=== PATIENT | male | born 1945 | race Caucasian/White ===

== ENCOUNTER 2019-12-26 13:48 | Emergency (ER) | payer MEDICARE, BC ==
[2019-12-26 13:59] VITALS: BP 119/82; PULSE 89
[2019-12-26] MEDS ORDERED: Ondansetron 4 MG/2 ML SDV IVPUSH ONE (14:15)
[2019-12-26] MEDS ORDERED: Sodium Chloride 0.9% 1,000 ML IV ONE (14:15)
[2019-12-26] MEDS ORDERED: HYDROmorphone 1 MG/ML Syringe IVPUSH ONE ×2 (14:15→15:40)
--- NOTE | 2019-12-26 14:20 | EDM.PDOC ---
ED HPI GENERAL MEDICAL PROBLEM - General Chief Complaint: Abdominal Pain Stated Complaint: STOMACH VERY PAINFUL Time Seen by Provider: 12/26/19 14:14 Source of Information: Reports: Patient History Limitations: Reports: No Limitations - History of Present Illness INITIAL COMMENTS - FREE TEXT/NARRATIVE: Patient is a 74-year-old gentleman who presents to the emergency department via private vehicle with a complaint of abdominal pain. states abdominal pain is described as pressure and pulling, began at 1600 yesterday, and has been persistent and gradually worsening. Patient states she's had 3 episodes of vomiting and no bowel movements. Patient underwent prostatectomy at [facility] in [place] on December 22. Patient states that the procedure was uneventful. He has however not had a bowel movement since. He currently has an indwelling Sharp catheter. Patient denies chest pain, shortness of breath, fever, blood from rectum, history of covid 19, or dislodging of urinary catheter. Onset: Sudden Onset Date: 12/25/19 Onset Time: 16:00 Duration: Day(s): Location: Reports: Abdomen Quality: Reports: Pressure Severity: Moderate Improves with: Reports: None Worsens with: Reports: None Associated Symptoms: Reports: Nausea/Vomiting. Denies: Chest Pain, Cough, Diaphoresis, Fever/Chills, Headaches, Shortness of Breath Bilateral Upper Abdominal Pain Score (Numeric/FACES): 10 - Related Data Allergies Allergy/AdvReac Type Severity Reaction Status Date / Time Sulfa (Sulfonamide Allergy Dizziness Verified 12/26/19 13:52 Antibiotics) Home Meds: Home Meds Gabapentin [Neurontin] 300 mg PO TID 12/26/19 [History] Sildenafil [Revatio] 20 mg PO ASDIRECTED PRN 12/26/19 [History] lisinopriL [Lisinopril] 10 mg PO DAILY 12/26/19 [History] Past Medical History Cardiovascular History: Reports: Other (See Below) Other Cardiovascular History: cardiac ablation Respiratory History: Reports: Asthma Gastrointestinal History: Reports: Jaundice Other Gastrointestinal History: 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 Constitutional: Reports: No Symptoms HEENT: Reports: No Symptoms Respiratory: Reports: No Symptoms Cardiovascular: Reports: No Symptoms Endocrine: Reports: No Symptoms GI/Abdominal: Reports: Abdominal Pain, Nausea, Vomiting : Reports: No Symptoms Musculoskeletal: Reports: No Symptoms Skin: Reports: No Symptoms Neurological: Reports: No Symptoms Psychiatric: Reports: No Symptoms Hematologic/Lymphatic: Reports: No Symptoms Immunologic: Reports: No Symptoms ED EXAM, GI/ABD - Physical Exam Exam: See Below Exam Limited By: No Limitations General Appearance: Alert, WD/WN, Mild Distress Throat/Mouth: Normal Inspection, Normal Oropharynx, No Airway Compromise Respiratory/Chest: No Respiratory Distress, Lungs Clear, Normal Breath Sounds, No Accessory Muscle Use, Chest Non-Tender Cardiovascular: Regular Rate, Rhythm, No Murmur GI/Abdominal Exam: No Abnormal Bruit, Abnormal Bowel Sounds (Hypoactive in all 4 quadrants). No: Distended, Guarding, Rigid, Rebound (Male) Exam: No Hernia Back Exam: Normal Inspection. No: CVA Tenderness (L), CVA Tenderness (R) Extremities: Normal Inspection, No Pedal Edema Neurological: Alert, Oriented, Normal Cognition Psychiatric: Normal Affect, Normal Mood Skin Exam: Warm, Dry, Intact, Normal Color, No Rash Lymphatic: No Adenopathy Course - Vital Signs Last Recorded V/S: Last Vital Signs Temp 96.8 F L 12/26/19 13:52 Pulse 89 12/26/19 13:52 Resp 16 12/26/19 13:52 BP 119/82 12/26/19 13:52 Pulse Ox 94 L 12/26/19 13:52 - Orders/Labs/Meds Orders: Active Orders 24 hr Category Date Time Status Peripheral IV Care [RC] . DIRECTED Care 12/26/19 14:13 Active URINALYSIS W/MICROSCOPIC [UA W/MICROSCOPIC] [URIN] Stat Lab 12/26/19 14:00 Ordered Sodium Chloride 0.9% [Saline Flush] Med 12/26/19 14:13 Active 10 ml FLUSH Q8HR PRN Peripheral IV Insertion Adult [OM.PC] Routine Oth 05/23/20 14:13 Ordered Medication Orders Sodium Chloride (Saline Flush) 10 ml FLUSH Q8HR PRN PRN Reason: keep vein open Last Admin: 12/26/19 14:30 Dose: 10 ml Admin: 12/26/19 14:29 Dose: 10 ml Labs: Laboratory Tests 12/26/19 12/26/19 Range/Units 14:07 14:07 WBC 9.54 (5.00-10.00) 10^3/uL RBC 4.44 L (4.50-6.00) 10^6/uL Hgb 13.3 (13.0-17.0) g/dL Hct 38.1 L (40.0-52.0) % MCV 85.8 D (82.0-92.0) fL MCH 30.0 (27.0-31.0) pg MCHC 34.9 (32.0-36.0) g/dL RDW 12.6 (11.5-14.5) % Plt Count 289 (150-400) 10^3/uL MPV 10.5 H (7.4-10.4) fL Immature Gran % (Auto) 0.4 (0.0-5.0) % Neut % (Auto) 77.4 H (50.0-70.0) % Lymph % (Auto) 15.2 L (20.0-40.0) % [place] % (Auto) 6.4 (2.0-8.0) % Eos % (Auto) 0.4 L (1.0-3.0) % Baso % (Auto) 0.2 (0.0-1.0) % Neut # (Auto) 7.38 H (2.50-7.00) 10^3/uL Lymph # (Auto) 1.45 (1.00-4.00) 10^3/uL [place] # (Auto) 0.61 (0.10-0.80) 10^3/uL Eos # (Auto) 0.04 L (0.10-0.30) 10^3/uL Baso # (Auto) 0.02 (0.00-0.10) 10^3/uL Immature Gran # (Auto) 0.04 (0.00-0.50) 10^3/uL Sodium 138 (136-145) mmol/L Potassium 3.9 (3.3-5.3) mmol/L Chloride 97 L (98-115) mmol/L Carbon Dioxide 32.9 H (21.0-32.0) mmol/L Anion Gap 12.0 (5-15) mmol/L BUN 32 H (6-25) mg/dL Creatinine 0.95 (0.51-1.17) mg/dL Est Cr Clr Drug Dosing 74.86 mL/min Estimated GFR (MDRD) > 60 mL/min Glucose 127 H (75 - 99) mg/dL Calcium 9.5 (8.7-10.3) mg/dL Total Bilirubin 1.0 (0.2-1.0) mg/dL AST 37 (15-37) U/L ALT 32 (12-78) U/L Alkaline Phosphatase 77 (46-116) IU/L Total Protein 7.2 (6.4-8.2) g/dL Albumin 3.78 (3.00-4.80) g/dL Lipase 101 (73-393) U/L Meds: Medications Generic Name Dose Route Start Last Admin Trade Name Freq PRN Reason Stop Dose Admin Sodium Chloride 10 ml 12/26/19 14:13 12/26/19 14:30 Saline Flush FLUSH 10 ml Q8HR PRN Administration keep vein open Discontinued Medications Generic Name Dose Route Start Last Admin Trade Name Freq PRN Reason Stop Dose Admin Hydromorphone HCl 0.5 mg 12/26/19 14:15 12/26/19 14:24 Dilaudid IVPUSH 12/26/19 14:16 0.5 mg ONETIME ONE Administration Sodium Chloride 1,000 mls @ 999 mls/hr 12/26/19 14:15 12/26/19 14:52 Normal Saline IV 12/26/19 15:15 999 mls/hr .BOLUS ONE Administration Ondansetron HCl 4 mg 12/26/19 14:15 12/26/19 14:21 Zofran IVPUSH 12/26/19 14:16 4 mg ONETIME ONE Administration - Radiology Interpretation Free Text/Narrative:: CT abdomen and pelvis shows small bowel obstruction - Re-Assessments/Exams Free Text/Narrative Re-Assessment/Exam: 12/26/19 15:35 Patient afebrile, vital signs stable, pain controlled, nontoxic appearing. Discussed case with Dr.Zreik, Gen. surgery at [facility]. He will accept transfer of patient via [facility] ground ambulance. Departure - Departure Time of Disposition: 15:37 Disposition: DC/Tfer to Acute Hospital 02 Condition: Fair Clinical Impression: Small bowel obstruction - Discharge Information Referrals: Rico Gonzáles [employer] [Primary Care Provider] - Forms: ED Department Discharge Sepsis Event Note - Evaluation Sepsis Screening Result: No Definite Risk - Focused Exam Vital Signs: Vital Signs Temp Pulse Resp BP Pulse Ox 12/26/19 13:52 96.8 F L 89 16 119/82 94 L Date Exam was Performed: 12/26/19 Time Exam was Performed: 15:37 - My Orders Last 24 Hours: My Active Orders 12/26/19 14:00 URINALYSIS W/MICROSCOPIC [UA W/MICROSCOPIC] [URIN] Stat 12/26/19 14:13 Peripheral IV Care [RC] . DIRECTED Sodium Chloride 0.9% [Saline Flush] 10 ml FLUSH Q8HR PRN Peripheral IV Insertion Adult [OM.PC] Routine - Assessment/Plan Last 24 Hours: My Active Orders 12/26/19 14:00 URINALYSIS W/MICROSCOPIC [UA W/MICROSCOPIC] [URIN] Stat 12/26/19 14:13 Peripheral IV Care [RC] . DIRECTED Sodium Chloride 0.9% [Saline Flush] 10 ml FLUSH Q8HR PRN Peripheral IV Insertion Adult [OM.PC] Routine Assessment:: Small bowel obstruction Plan: Transfer to [facility]
[2019-12-26] MEDS: Sodium Chloride 0.9% 10 ML Syringe FLUSH PRN ×2 (14:29→14:30)
[2019-12-26 14:40] LABS: CHLORIDE,CL 97 mmol/L (98-115); SODIUM,NA 138 mmol/L (136-145)
--- NOTE | 2019-12-26 15:12 | CT ---
[id number] CT/CT Abdomen Pelvis WO IV EXAM: CT Abdomen Pelvis WO IV CLINICAL DATA: UPPER ABDOMINAL PAIN. COMPARISON STUDY: None. FINDINGS: A few scattered tree-in-bud nodularity is within the right midlung zone. There are postsurgical changes following recent prostatectomy. There are a few hyperdense collections in the region of the resection bed likely related to postsurgical seroma/hematoma. The largest of these measures up to 5 cm. There is a Sharp catheter in place. There is free air, small amount of free fluid. The liver, spleen, adrenal glands and kidneys are unremarkable. Cholelithiasis without evidence of acute cholecystitis. Fatty atrophy of the pancreas. Multiple fluid distended loops of small bowel. There is no distinct transition point identified. No pneumatosis. There is gas and stool within the colon. Small right rectus sheath hematoma measuring up to 0.8 cm. No hyperdensity to suggest active extravasation. No significant adenopathy. Extensive postsurgical changes of the visualized spine. IMPRESSION: 1. Postsurgical changes following recent prostatectomy as described above. Multiple fluid distended loops of small bowel without a distinct transition point. There is gas and stool within the colon. Findings are suggestive of ileus versus partial small bowel obstruction. Praful Alejo DO 12/26/19 [id number] Thank you for allowing us to participate in the care of your patient.
[2019-12-26] MEDS ORDERED: Sodium Chloride 0.9% 1,000 ML IV SCH (15:45)
== END 2019-12-26 15:35 ==
LOC: KA.ED 13:48
DX: K56.609 Unspecified intestinal obstruction, unspecified as to partial versus complete obstruction (principal); J45.909 Unspecified asthma, uncomplicated; M41.9 Scoliosis, unspecified; Z79.899 Other long term (current) drug therapy; Z88.2 Allergy status to sulfonamides
CPT/HCPCS: 36415; 74176; 80053; 83690; 85025; 96361; 96374; 96375; 99284; 99285-25; J1170; J2405; J7030

== ENCOUNTER 2021-12-02 18:31 | Emergency (ER) | payer MEDICARE, BC ==
[2021-12-02 19:08] LABS: ANION GAP 10.7 mmol/L (5-15); CHLORIDE,CL 98 mmol/L (98-107); SODIUM,NA 134 mmol/L (136-145)
[2021-12-02] MEDS: HYDROmorphone 1 MG/ML Syringe IM ONE (19:53)
[2021-12-02 20:07] LABS: CORONAVIRUS COVID-19 NAA NEGATIVE (NEGATIVE)
[2021-12-02 20:31] VITALS: BP 147/85; PULSE 69
== END 2021-12-02 20:50 | disposition home or self-care (01) ==
LOC: KA.ED 18:31
DX: M54.2 Cervicalgia (principal); Z88.2 Allergy status to sulfonamides; Z79.899 Other long term (current) drug therapy; Z20.822 Contact with and (suspected) exposure to COVID-19
CPT/HCPCS: 0240U; 36415; 71046; 80048; 85025; 87081; 87430; 96372; 99283-25; 99284; J1170

== ENCOUNTER 2022-09-11 07:04 | Day surgery (SDC) | payer MEDICARE, BC ==
[~2022-09-11 07:04] MED LIST: Sodium Chloride 0.9% 10 ML Syringe FLUSH PRN
[2022-09-11] MEDS ORDERED: Propofol 200 MG/20 ML SDV IV ONE (07:05)
[2022-09-11] MEDS: Lactated Ringers 1,000 ML IV SCH (07:45)
[2022-09-11] MEDS ORDERED: Propofol 200 MG/20 ML SDV ONE ×2 (07:56→08:31)
[2022-09-11] MEDS ORDERED: Midazolam 1 MG/ML 2 ML SDV ONE (07:56)
[2022-09-11] MEDS ORDERED: Lactated Ringers 1,000 ML ONE (08:44)
[2022-09-11 12:03] VITALS: BP 104/72; PULSE 61
== END 2022-09-11 10:20 | disposition home or self-care (01) ==
LOC: KA.SDS 07:04
PROVIDERS: ATTEND Family Medicine
DX: K63.5 Polyp of colon (principal); K57.30 Diverticulosis of large intestine without perforation or abscess without bleeding; K64.4 Residual hemorrhoidal skin tags; I10 Essential (primary) hypertension; E78.00 Pure hypercholesterolemia, unspecified; D64.9 Anemia, unspecified; F41.9 Anxiety disorder, unspecified; E78.5 Hyperlipidemia, unspecified; Z80.0 Family history of malignant neoplasm of digestive organs; Z98.1 Arthrodesis status; Z79.899 Other long term (current) drug therapy; Z98.890 Other specified postprocedural states; Z87.891 Personal history of nicotine dependence; Z88.2 Allergy status to sulfonamides
CPT/HCPCS: 00811; J2250; J2704; J7120

== ENCOUNTER 2023-07-15 22:22 | Emergency (ER) | payer MEDICARE, BC ==
[2023-07-15] MEDS ORDERED: Sodium Chloride 0.9% 10 ML Syringe FLUSH PRN (22:32)
[2023-07-15 22:59] LABS: BASOPHILS ABSOLUTE AUTO 0.01 10^3/uL (0.00-0.10); BASOPHILS PERCENT AUTO 0.1 % (0.0-1.0); EOSINOPHILS ABSOLUTE AUTO 0.05 10^3/uL (0.10-0.30); EOSINOPHILS PERCENT AUTO 0.7 % (1.0-3.0); HEMATOCRIT 35.2 % (40.0-52.0); HEMOGLOBIN 12.3 g/dL (13.0-17.0); IMMATURE GRAN ABSOLUTE AUTO 0.01 10^3/uL (0.00-0.50); IMMATURE GRAN PERCENT AUTO 0.1 % (0.0-5.0); LYMPHOCYTES PERCENT AUTO 5.7 % (20.0-40.0); MEAN CORPUSCULAR HEMOGLOBIN 30.5 pg (27.0-31.0); MEAN CORPUSCULAR HGB CONC 34.9 g/dL (32.0-36.0); MEAN CORPUSCULAR VOLUME 87.3 fL (82.0-92.0); MEAN PLATELET VOLUME 10.9 fL (7.4-10.4); MONOCYTES ABSOLUTE AUTO 0.41 10^3/uL (0.10-0.80); MONOCYTES PERCENT AUTO 5.8 % (2.0-8.0); NEUTROPHILS ABSOLUTE AUTO 6.14 10^3/uL (2.50-7.00); NEUTROPHILS PERCENT AUTO 87.6 % (50.0-70.0); PLATELET COUNT,PLT 188 10^3/uL (150-400); RED BLOOD CELL COUNT 4.03 10^6/uL (4.50-6.00); RED CELL DISTRIBUTION WIDTH 12.8 % (11.5-14.5); WHITE BLOOD CELL COUNT,WBC 7.02 10^3/uL (5.00-10.00)
[2023-07-15] MEDS ORDERED: HYDROmorphone 1 MG/ML Syringe IVPUSH ONE (23:07)
[2023-07-15] MEDS ORDERED: Naloxone 0.4 MG/ML SDV IVPUSH PRN (23:07)
[2023-07-15] MEDS ORDERED: Acetaminophen 500 MG Tab PO ONE (23:07)
[2023-07-15] MEDS ORDERED: Ondansetron 4 MG/2 ML SDV IVPUSH ONE (23:08)
[2023-07-15 23:19] LABS: ALBUMIN 3.29 g/dL (3.40-5.00); ANION GAP 10.9 mmol/L (5-15); BILIRUBIN TOTAL 0.7 mg/dL (0.2-1.0); CARBON DIOXIDE,CO2 27.1 mmol/L (21.0-32.0); CREATININE 0.97 mg/dL (0.51-1.17); EST CRCL DRUG DOSING (CG) 65.84 mL/min; PROTEIN TOTAL,TP 6.4 g/dL (6.4-8.2)
[2023-07-15 23:26] LABS: INR 1.2 (0.9-1.1); PROTHROMBIN TIME 11.6 SEC (9.2-11.2)
[2023-07-15 23:35] VITALS: BP 141/77; PULSE 98
[2023-07-15 23:48] LABS: CORONAVIRUS COVID-19 NAA NEGATIVE (NEGATIVE); INFLUENZA A NAA NEGATIVE (NEGATIVE); INFLUENZA B NAA NEGATIVE (NEGATIVE); RESPIRATORY SYNCYTIAL VIR NAA NEGATIVE (NEGATIVE)
[2023-07-15 23:56] LABS: APPEARANCE,URINE CLEAR (CLEAR); BILIRUBIN,URINE NEGATIVE (NEGATIVE); COLOR,URINE YELLOW (YELLOW); GLUCOSE,URINE NEGATIVE (NEGATIVE); KETONES,URINE NEGATIVE (NEGATIVE); LEUKOCYTE ESTERASE,URINE NEGATIVE (NEGATIVE); NITRITE,URINE NEGATIVE (NEGATIVE); OCCULT BLOOD,URINE NEGATIVE (NEGATIVE); PROTEIN,URINE NEGATIVE (NEGATIVE)
== END 2023-07-16 00:20 | disposition home or self-care (01) ==
LOC: KA.ED 22:22
DX: R50.9 Fever, unspecified (principal); R74.01 Elevation of levels of liver transaminase levels; R53.81 Other malaise; T80.89XA Other complications following infusion, transfusion and therapeutic injection, initial encounter; Z20.822 Contact with and (suspected) exposure to COVID-19; Z88.2 Allergy status to sulfonamides; Z79.899 Other long term (current) drug therapy; Z79.2 Long term (current) use of antibiotics; Z86.16 Personal history of COVID-19
CPT/HCPCS: 0241U; 80053; 81003; 83605; 84484; 85025; 85610; 87040; 96374; 96375; 99284; 99284-25; A9270-GY; J1170; J2405

== ENCOUNTER 2023-07-27 05:58 | Emergency (ER) | payer MEDICARE, BC ==
[2023-07-27] MEDS ORDERED: Ibuprofen 600 MG Tab PO ONE (06:06)
[2023-07-27] MEDS ORDERED: Sodium Chloride 0.9% 10 ML Syringe FLUSH PRN (06:30)
[2023-07-27 06:31] LABS: BASOPHILS ABSOLUTE AUTO 0.01 10^3/uL (0.00-0.10); BASOPHILS PERCENT AUTO 0.1 % (0.0-1.0); EOSINOPHILS ABSOLUTE AUTO 0.01 10^3/uL (0.10-0.30); EOSINOPHILS PERCENT AUTO 0.1 % (1.0-3.0); HEMATOCRIT 37.6 % (40.0-52.0); HEMOGLOBIN 13.1 g/dL (13.0-17.0); IMMATURE GRAN ABSOLUTE AUTO 0.04 10^3/uL (0.00-0.50); IMMATURE GRAN PERCENT AUTO 0.3 % (0.0-5.0); LYMPHOCYTES PERCENT AUTO 2.2 % (20.0-40.0); MEAN CORPUSCULAR HEMOGLOBIN 30.3 pg (27.0-31.0); MEAN CORPUSCULAR HGB CONC 34.8 g/dL (32.0-36.0); MEAN CORPUSCULAR VOLUME 86.8 fL (82.0-92.0); MEAN PLATELET VOLUME 10.3 fL (7.4-10.4); MONOCYTES PERCENT AUTO 1.5 % (2.0-8.0); NEUTROPHILS ABSOLUTE AUTO 12.98 10^3/uL (2.50-7.00); NEUTROPHILS PERCENT AUTO 95.8 % (50.0-70.0); PLATELET COUNT,PLT 247 10^3/uL (150-400); RED BLOOD CELL COUNT 4.33 10^6/uL (4.50-6.00); RED CELL DISTRIBUTION WIDTH 12.9 % (11.5-14.5); WHITE BLOOD CELL COUNT,WBC 13.54 10^3/uL (5.00-10.00)
[2023-07-27] MEDS ORDERED: Sodium Chloride 0.9% 1,000 ML IV ONE ×3 (06:38→09:54)
[2023-07-27 06:42] LABS: ALBUMIN 3.38 g/dL (3.40-5.00); ANION GAP 14.4 mmol/L (5-15); BILIRUBIN TOTAL 5.9 mg/dL (0.2-1.0); CALCIUM 8.1 mg/dL (8.7-10.3); CARBON DIOXIDE,CO2 25.7 mmol/L (21.0-32.0); CREATININE 1.05 mg/dL (0.51-1.17); EST CRCL DRUG DOSING (CG) 61.8 mL/min; POTASSIUM,K 4.1 mmol/L (3.5-5.1); PROTEIN TOTAL,TP 6.5 g/dL (6.4-8.2)
[2023-07-27] MEDS ORDERED: Ondansetron 4 MG/2 ML SDV IVPUSH ONE ×2 (06:45→08:29)
[2023-07-27] MEDS ORDERED: HYDROmorphone 1 MG/ML Syringe IVPUSH ONE ×2 (06:45→08:15)
[2023-07-27] MEDS ORDERED: Cefepime 2 GM in Sodium Chloride 0.9% 50 ML IV ONE (06:47)
[2023-07-27 07:32] LABS: INFLUENZA A NAA NEGATIVE (NEGATIVE); INFLUENZA B NAA NEGATIVE (NEGATIVE)
[2023-07-27 07:32] LABS: APPEARANCE,URINE CLEAR (CLEAR); BILIRUBIN,URINE LARGE (NEGATIVE); COLOR,URINE DARK YELLOW (YELLOW); GLUCOSE,URINE 100 mg/dL (NEGATIVE); KETONES,URINE NEGATIVE (NEGATIVE); LEUKOCYTE ESTERASE,URINE NEGATIVE (NEGATIVE); NITRITE,URINE NEGATIVE (NEGATIVE); OCCULT BLOOD,URINE NEGATIVE (NEGATIVE); PH,URINE 8.5 (5.0-9.0); PROTEIN,URINE 30 mg/dL (NEGATIVE); UROBILINOGEN,URINE >=8.0 E.U./dL (0.2-1.0)
[2023-07-27 07:34] LABS: BACTERIA,URINE RARE /HPF (NONE TO FEW); EPITHELIAL CELLS,URINE FEW /LPF; RBC,URINE 0-5 /HPF (0-5); WBC,URINE 0-5 /HPF (0-5)
[2023-07-27 07:35] LABS: CORONAVIRUS COVID-19 NAA NEGATIVE (NEGATIVE)
[2023-07-27] MEDS ORDERED: Iopamidol 755 Mg/ML 100 ML Bottle IV ONE (07:37)
[2023-07-27] MEDS ORDERED: Sodium Chloride 0.9% 50 ML IV SCH (07:45)
[2023-07-27] MEDS ORDERED: Morphine 4 MG/ML Syringe IVPUSH ONE (08:29)
[2023-07-27 09:44] VITALS: BP 107/59; PULSE 68
[2023-07-27] MEDS ORDERED: Sodium Chloride 0.9% 1,000 ML ONE (09:51)
== END 2023-07-27 11:30 ==
LOC: KA.ED 05:58
DX: K85.90 Acute pancreatitis without necrosis or infection, unspecified (principal); R50.9 Fever, unspecified; R74.01 Elevation of levels of liver transaminase levels; D72.829 Elevated white blood cell count, unspecified; Z88.2 Allergy status to sulfonamides; Z79.2 Long term (current) use of antibiotics; Z79.899 Other long term (current) drug therapy; Z86.16 Personal history of COVID-19; Z87.891 Personal history of nicotine dependence; Z20.822 Contact with and (suspected) exposure to COVID-19
CPT/HCPCS: 0240U; 36415; 71045; 74177; 80053; 81001; 83605; 83690; 84484; 85025; 87040; 93010; 96361; 96365; 96375; 96376; 99284; 99285-25; A9270-GY; J0692; J1170; J2405; J3490; J7030; Q9967